=== PATIENT | male | born 1985 | race Caucasian/White ===

== ENCOUNTER 2016-04-22 18:09 | Emergency (ER) | payer OTHER ==
[~2016-04-22] VITALS: Ht 180.3 cm; Wt 76.5 kg
[~2016-04-22 18:09] MED LIST: ATARAX,VISTARIL25 MG PO; ATIVAN0.5 MG PO; CHLORDIAZEPOXID25 MG PO; FOLIC ACID1 MG PO; LIBRIUM25 MG PO; NOHOMEMEDS; OXYCODONE HCL10 MG PO; OXYCODONE HCL5 MG PO; PERCOCET 5/31 TABLET PO; THIAMINE HCL100 MG PO; ZOFRAN ODT4 MG PO
[2016-04-22] MEDS ORDERED: PERCOCET 5/31 TABLET PO (20:50)
[2016-04-22 21:25] VITALS: BP 156/89
== END 2016-04-22 21:26 | disposition home or self-care (01) ==
LOC: EME 18:09
PROC: 2W3TX1Z Immobilization of Left Foot using Splint (ICD-10-PCS; principal; 2016-04-22)
DX: S92.325A Nondisplaced fracture of second metatarsal bone, left foot, initial encounter for closed fracture (principal); W20.8XXA Other cause of strike by thrown, projected or falling object, initial encounter; Y99.0 Civilian activity done for income or pay; Z88.0 Allergy status to penicillin; F17.200 Nicotine dependence, unspecified, uncomplicated
CPT/HCPCS: 73630; 93971; 99281; 99284; J3010

== ENCOUNTER 2016-04-30 21:09 | Emergency (ER) | payer OTHER ==
[~2016-04-30] VITALS: Ht 180.3 cm; Wt 76.3 kg
[2016-05-01] MEDS ORDERED: PREDNISONE10 M1 PO (00:44)
[2016-05-01] MEDS ORDERED: ATARAX,VISTARIL25 MG PO (00:52)
[2016-05-01 00:53] VITALS: BP 176/118
[2016-05-01 01:07] LABS: HEMATOCRIT 49.1 % (38.0-50.0); MCH 31.3 PG (29.0-34.0); MCHC 34.2 G/DL (30.0-36.0); MCV 91.6 FL (86-99); MEAN PLAT.VOLUME 10.3 uM^3 (9.0-12.4); PLATELET COUNT 169 K/uL (156-360); RBC DIS.WIDTH-CV 12.2 % (11.8-14.6); RBC DIS.WIDTH-SD 41.1 % (39-53); RED BLOOD COUNT 5.36 M/uL (4.00-5.50); WHITE BLOOD COUNT 9.5 K/uL (4.1-10.2)
[2016-05-01 01:33] LABS: ERTH.SED.RATE 6 MM/HR (0-15)
== END 2016-05-01 01:00 | disposition home or self-care (01) ==
LOC: EME 21:09
PROVIDERS: Physician Assistant
DX: M79.672 Pain in left foot (principal); R20.0 Anesthesia of skin; Z87.891 Personal history of nicotine dependence; F41.9 Anxiety disorder, unspecified
CPT/HCPCS: 85027; 85651; 86140; 93926; 99281; 99284

== ENCOUNTER 2016-05-17 18:18 | Emergency (ER) | payer SELFPAY ==
[~2016-05-17] VITALS: Ht 180.3 cm; Wt 79.4 kg
[~2016-05-17 18:18] MED LIST changes: +PREDNISONE10 M1 PO
[2016-05-17 19:41] LABS: EOSINOPHIL (%) 0.1 % (0-5); HEMATOCRIT 44.6 % (38.0-50.0); IMMATURE GRANULOCYTE COUNT 0.1 K/uL; INSTRUMENT ABS NEUTROPHIL CT 7.5 K/uL; LYMPHOCYTE COUNT 1.4 K/uL (1.0-2.8); MCH 31.4 PG (29.0-34.0); MCHC 34.8 G/DL (30.0-36.0); MCV 90.5 FL (86-99); MEAN PLAT.VOLUME 9.9 uM^3 (9.0-12.4); MONOCYTE (%) 5.8 % (3-12); MONOCYTE COUNT 0.6 K/uL (0-0.8); NEUTROPHIL (%) 78.6 % (45-76); NEUTROPHIL COUNT 7.5 K/uL (1.8-6.4); PLATELET COUNT 121 K/uL (156-360); RBC DIS.WIDTH-CV 12.1 % (11.8-14.6); RBC DIS.WIDTH-SD 39.8 % (39-53); RED BLOOD COUNT 4.93 M/uL (4.00-5.50); WHITE BLOOD COUNT 9.6 K/uL (4.1-10.2)
[2016-05-17 19:49] LABS: CHLORIDE 104 mEq/L (99-109); POTASSIUM 3.7 mEq/L (3.7-5.4); SODIUM 142 mEq/L (136-147)
[2016-05-17 19:51] LABS: GLUCOSE 102 mg/dL (70-99)
[2016-05-17 19:52] LABS: ANION GAP 11 MEQ/L (2-14)
[2016-05-17 19:54] LABS: SERUM ETHYL ALCOHOL < 10 mg/dL
[2016-05-17 19:55] LABS: GFR ESTIMATE (CALCULATED) > 59 mL/min/
[2016-05-17 19:56] LABS: UREA NITROGEN (BUN) 13 mg/dL (9-23)
[2016-05-17 20:59] LABS: AMPHETAMINE NEGATIVE (500 ng/mL); BARBITURATES NEGATIVE (200 ng/mL); BENZODIAZEPINES PRESUMPTIVE POSITIVE (150 ng/mL); COCAINE PRESUMPTIVE POSITIVE (150 ng/mL); INTERNAL CONTROLS VALID? YES; METHADONE NEGATIVE (200 ng/mL); METHAMPHETAMINE NEGATIVE (500 ng/mL); OPIATES (MORPHINE) NEGATIVE (100 ng/mL); OXYCODONE PRESUMPTIVE POSITIVE (100 ng/mL); PHENCYCLIDINE NEGATIVE (25 ng/mL); PROPOXYPHENE NEGATIVE (300 ng/mL); THC CANNABINOIDS PRESUMPTIVE POSITIVE (50 ng/mL); TRICYCLIC ANTIDEPRESSANTS NEGATIVE (300 ng/mL)
[2016-05-17 21:00] LABS: ADD MEDTOX COMMENT Y
[2016-05-17 21:25] LABS: BENZODIAZEPINES QUANT VALUE 0 NG/ML
[2016-05-17 21:27] LABS: BENZODIAZEPINES, URINE SCREEN Negative (200 ng/mL)
[2016-05-17] MEDS ORDERED: LIBRIUM25 MG PO (23:17)
[2016-05-17 23:44] VITALS: BP 134/63
== END 2016-05-17 23:51 | disposition home or self-care (01) ==
LOC: EME 18:18
PROVIDERS: Emergency Medicine
DX: F10.14 Alcohol abuse with alcohol-induced mood disorder (principal); F41.3 Other mixed anxiety disorders; F12.90 Cannabis use, unspecified, uncomplicated; F14.90 Cocaine use, unspecified, uncomplicated; Z88.0 Allergy status to penicillin
CPT/HCPCS: 80048; 84999; 85025; 90839; 99281; 99285; G0480; J2060; J2405; J7030

== ENCOUNTER 2016-06-22 20:06 | Emergency (ER) | payer SELFPAY ==
[~2016-06-22] VITALS: Ht 180.3 cm; Wt 75.0 kg
[2016-06-22 21:09] LABS: EOSINOPHIL (%) 0.5 % (0-5); HEMATOCRIT 43.7 % (38.0-50.0); IMMATURE GRANULOCYTE (%) 0.5 % (0.0-0.7); INSTRUMENT ABS NEUTROPHIL CT 4.2 K/uL; LYMPHOCYTE COUNT 2.9 K/uL (1.0-2.8); MCHC 35.2 G/DL (30.0-36.0); MCV 90.7 FL (86-99); MEAN PLAT.VOLUME 9.9 uM^3 (9.0-12.4); MONOCYTE (%) 3.9 % (3-12); MONOCYTE COUNT 0.3 K/uL (0-0.8); NEUTROPHIL COUNT 4.2 K/uL (1.8-6.4); PLATELET COUNT 140 K/uL (156-360); RBC DIS.WIDTH-CV 12.7 % (11.8-14.6); RBC DIS.WIDTH-SD 41.8 % (39-53); RED BLOOD COUNT 4.82 M/uL (4.00-5.50); WHITE BLOOD COUNT 7.4 K/uL (4.1-10.2)
[2016-06-22 21:18] LABS: CHLORIDE 107 mEq/L (99-109); POTASSIUM 4.1 mEq/L (3.7-5.4); SODIUM 146 mEq/L (136-147)
[2016-06-22 21:19] LABS: PROTHROMBIN TIME 10.1 (9.2-11.2)
[2016-06-22 21:20] LABS: GLUCOSE 102 mg/dL (70-99)
[2016-06-22 21:21] LABS: ANION GAP 12 MEQ/L (2-14)
[2016-06-22 21:22] LABS: TOTAL BILIRUBIN 0.4 mg/dL (0.0-1.0)
[2016-06-22 21:23] LABS: SERUM ETHYL ALCOHOL 303 mg/dL
[2016-06-22 21:24] LABS: ALKALINE PHOSPHATASE 64 IU/L (3-129); GFR ESTIMATE (CALCULATED) > 59 mL/min/
[2016-06-22 21:25] LABS: UREA NITROGEN (BUN) 13 mg/dL (9-23)
[2016-06-22 21:27] LABS: LIPASE 102 U/L (1.0-51.0)
[2016-06-22 22:34] LABS: ADD MIUA? NO; BILIRUBIN NEGATIVE; BLOOD NEGATIVE; COLOR YELLOW ((YELLOW)); GLUCOSE (STRIP) NEGATIVE; KETONES NEGATIVE; LEUKOCYTES NEGATIVE; NITRITE NEGATIVE; PROTEIN (STRIP) NEGATIVE; SPECIFIC GRAVITY 1.018 (1.000-1.030); UCUL ADDED? NO
[2016-06-22 22:42] LABS: COCAINE NEGATIVE (150 ng/mL); METHAMPHETAMINE NEGATIVE (500 ng/mL); OPIATES (MORPHINE) NEGATIVE (100 ng/mL); PHENCYCLIDINE NEGATIVE (25 ng/mL); THC CANNABINOIDS NEGATIVE (50 ng/mL)
[2016-06-22 22:43] LABS: ADD MEDTOX COMMENT Y; AMPHETAMINE NEGATIVE (500 ng/mL); BARBITURATES NEGATIVE (200 ng/mL); BENZODIAZEPINES PRESUMPTIVE POSITIVE (150 ng/mL); INTERNAL CONTROLS VALID? YES; METHADONE NEGATIVE (200 ng/mL); OXYCODONE NEGATIVE (100 ng/mL); PROPOXYPHENE NEGATIVE (300 ng/mL); TRICYCLIC ANTIDEPRESSANTS NEGATIVE (300 ng/mL)
[2016-06-22] MEDS ORDERED: LIBRIUM25 MG PO (22:53)
[2016-06-22 23:08] VITALS: BP 138/91
[2016-06-22 23:14] LABS: BENZODIAZEPINES, URINE SCREEN POSITIVE (200 ng/mL)
== END 2016-06-22 23:13 | disposition home or self-care (01) ==
LOC: EME 20:06
PROVIDERS: Emergency Medicine
DX: F10.129 Alcohol abuse with intoxication, unspecified (principal); Y90.8 Blood alcohol level of 240 mg/100 ml or more; K85.90 Acute pancreatitis without necrosis or infection, unspecified; K74.60 Unspecified cirrhosis of liver; Z72.0 Tobacco use
CPT/HCPCS: 74177; 76705; 80053; 81003; 82140; 83605; 83690; 84999; 85025; 85610; 85730; 99281; 99285; G0480; J2270; J2405; J7030

== ENCOUNTER 2016-10-30 19:05 | Emergency (ER) | payer SELFPAY ==
[~2016-10-30] VITALS: Ht 177.8 cm; Wt 84.6 kg
[2016-10-30 20:01] LABS: EOSINOPHIL (%) 0.3 % (0-5); HEMATOCRIT 46.8 % (38.0-50.0); IMMATURE GRANULOCYTE (%) 0.3 % (0.0-0.7); INSTRUMENT ABS NEUTROPHIL CT 3.4 K/uL; MCHC 34.8 G/DL (30.0-36.0); MCV 91.9 FL (86-99); MONOCYTE (%) 8.3 % (3-12); MONOCYTE COUNT 0.5 K/uL (0-0.8); NEUTROPHIL (%) 57.8 % (45-76); NEUTROPHIL COUNT 3.4 K/uL (1.8-6.4); PLATELET COUNT 120 K/uL (156-360); RBC DIS.WIDTH-CV 12.5 % (11.8-14.6); RBC DIS.WIDTH-SD 42.7 % (39-53); RED BLOOD COUNT 5.09 M/uL (4.00-5.50); WHITE BLOOD COUNT 5.9 K/uL (4.1-10.2)
[2016-10-30 20:10] LABS: CHLORIDE 111 mEq/L (99-109); POTASSIUM 3.8 mEq/L (3.7-5.4); SODIUM 146 mEq/L (136-147)
[2016-10-30 20:12] LABS: GLUCOSE 90 mg/dL (70-99)
[2016-10-30 20:13] LABS: ANION GAP 11 MEQ/L (2-14)
[2016-10-30 20:14] LABS: TOTAL BILIRUBIN 0.5 mg/dL (0.0-1.0)
[2016-10-30 20:15] LABS: SERUM ETHYL ALCOHOL 247 mg/dL
[2016-10-30 20:16] LABS: ALKALINE PHOSPHATASE 61 IU/L (3-129); GFR ESTIMATE (CALCULATED) > 59 mL/min/
[2016-10-30 20:17] LABS: DIRECT BILIRUBIN 0.2 mg/dL (0.0-0.3); UREA NITROGEN (BUN) 8 mg/dL (9-23)
[2016-10-30 21:24] LABS: ADD MIUA? NO; BILIRUBIN NEGATIVE; BLOOD NEGATIVE; COLOR YELLOW ((YELLOW)); GLUCOSE (STRIP) NEGATIVE; KETONES NEGATIVE; LEUKOCYTES NEGATIVE; NITRITE NEGATIVE; PROTEIN (STRIP) NEGATIVE; SPECIFIC GRAVITY 1.013 (1.000-1.030)
[2016-10-30 21:34] LABS: ADD MEDTOX COMMENT Y; AMPHETAMINE NEGATIVE (500 ng/mL); BARBITURATES NEGATIVE (200 ng/mL); BENZODIAZEPINES PRESUMPTIVE POSITIVE (150 ng/mL); COCAINE PRESUMPTIVE POSITIVE (150 ng/mL); INTERNAL CONTROLS VALID? YES; METHADONE NEGATIVE (200 ng/mL); METHAMPHETAMINE NEGATIVE (500 ng/mL); OPIATES (MORPHINE) NEGATIVE (100 ng/mL); OXYCODONE NEGATIVE (100 ng/mL); PHENCYCLIDINE NEGATIVE (25 ng/mL); PROPOXYPHENE NEGATIVE (300 ng/mL); THC CANNABINOIDS PRESUMPTIVE POSITIVE (50 ng/mL); TRICYCLIC ANTIDEPRESSANTS NEGATIVE (300 ng/mL)
[2016-10-30 22:08] LABS: BENZODIAZEPINES, URINE SCREEN POSITIVE (200 ng/mL)
[2016-10-31] MEDS ORDERED: LIBRIUM25 MG PO (02:00)
[2016-10-31 02:36] VITALS: BP 119/78
== END 2016-10-31 02:33 | disposition home or self-care (01) ==
LOC: EME 19:05
PROVIDERS: Emergency Medicine
DX: F10.229 Alcohol dependence with intoxication, unspecified (principal); F12.10 Cannabis abuse, uncomplicated; F14.10 Cocaine abuse, uncomplicated; Y90.8 Blood alcohol level of 240 mg/100 ml or more; F41.3 Other mixed anxiety disorders; F32.9 Major depressive disorder, single episode, unspecified; R11.2 Nausea with vomiting, unspecified; R19.7 Diarrhea, unspecified; R10.11 Right upper quadrant pain; R33.9 Retention of urine, unspecified; F17.200 Nicotine dependence, unspecified, uncomplicated
CPT/HCPCS: 80048; 80076; 81003; 84999; 85025; 90839; 99281; 99285; G0480; J3411; J3475

== ENCOUNTER 2017-01-12 20:12 | Emergency (ER) | payer SELFPAY ==
[2017-01-12] MEDS ORDERED: PERCOCET 5/31 TABLET PO (20:27)
[2017-01-12] MEDS ORDERED: MOTRIN800 MG PO (20:27)
[2017-01-12 20:28] VITALS: BP 149/98
== END 2017-01-12 20:31 ==
LOC: EME 20:12
DX: Z02.89 Encounter for other administrative examinations (principal); F10.129 Alcohol abuse with intoxication, unspecified; M79.602 Pain in left arm; Z88.0 Allergy status to penicillin
CPT/HCPCS: 99281; 99283

== ENCOUNTER 2017-02-27 09:21 | Emergency (ER) | payer SELFPAY ==
[~2017-02-27] VITALS: Ht 177.8 cm; Wt 85.0 kg
[~2017-02-27 09:21] MED LIST changes: +MOTRIN800 MG PO
[2017-02-27 10:02] LABS: HEMATOCRIT 48.4 % (38.0-50.0); HEMOGLOBIN 17.3 G/DL (12.5-16.6); MCH 33.1 PG (29.0-34.0); MCHC 35.7 G/DL (30.0-36.0); MCV 92.5 FL (86-99); PLATELET COUNT 178 K/uL (156-360); RBC DIS.WIDTH-CV 13.1 % (11.8-14.6); RBC DIS.WIDTH-SD 44.4 % (39-53); RED BLOOD COUNT 5.23 M/uL (4.00-5.50); WHITE BLOOD COUNT 5.5 K/uL (4.1-10.2)
[2017-02-27 10:10] LABS: ALBUMIN 4.7 g/dL (3.2-4.8); CHLORIDE 103 mEq/L (99-109); POTASSIUM 4.3 mEq/L (3.7-5.4); SODIUM 140 mEq/L (136-147)
[2017-02-27 10:13] LABS: GLUCOSE 96 mg/dL (70-99)
[2017-02-27 10:14] LABS: TOTAL BILIRUBIN 1.3 mg/dL (0.0-1.0)
[2017-02-27 10:16] LABS: ALKALINE PHOSPHATASE 66 IU/L (3-129); CREATININE 0.8 mg/dL (0.6-1.3); GFR ESTIMATE (CALCULATED) > 59 mL/min/ (58.99-99999)
[2017-02-27 10:17] LABS: UREA NITROGEN (BUN) 9 mg/dL (9-23)
[2017-02-27 10:18] LABS: AST (GOT) 37 IU/L (2-34); DIRECT BILIRUBIN 0.5 mg/dL (0.0-0.3)
[2017-02-27 10:19] LABS: ALT (GPT) 26 IU/L (3-49)
[2017-02-27 10:20] LABS: LIPASE 31 U/L (1.0-51.0)
[2017-02-27 11:22] LABS: AMPHETAMINE NEGATIVE (500 ng/mL); COCAINE NEGATIVE (150 ng/mL); OPIATES (MORPHINE) NEGATIVE (100 ng/mL); PHENCYCLIDINE NEGATIVE (25 ng/mL); THC CANNABINOIDS PRESUMPTIVE POSITIVE (50 ng/mL)
[2017-02-27 11:23] LABS: BARBITURATES NEGATIVE (200 ng/mL); BENZODIAZEPINES PRESUMPTIVE POSITIVE (150 ng/mL); BUPRENORPHINE NEGATIVE (10 ng/mL); METHADONE NEGATIVE (200 ng/mL); METHAMPHETAMINE NEGATIVE (500 ng/mL); OXYCODONE NEGATIVE (100 ng/mL); PROPOXYPHENE NEGATIVE (300 ng/mL); TRICYCLIC ANTIDEPRESSANTS NEGATIVE (300 ng/mL)
[2017-02-27 12:11] LABS: BENZODIAZEPINES, URINE SCREEN POSITIVE (200 ng/mL)
[2017-02-27 12:19] LABS: SERUM ETHYL ALCOHOL 141 mg/dL
[2017-02-27] MEDS ORDERED: LIBRIUM25 MG PO (12:48)
[2017-02-27] MEDS ORDERED: VITAMIN B-1100 MG PO (12:48)
[2017-02-27 13:16] VITALS: BP 159/86
== END 2017-02-27 13:17 | disposition home or self-care (01) ==
LOC: EME 09:21
PROVIDERS: Emergency Medicine
DX: R10.31 Right lower quadrant pain (principal); F10.239 Alcohol dependence with withdrawal, unspecified; Y90.6 Blood alcohol level of 120-199 mg/100 ml; K76.0 Fatty (change of) liver, not elsewhere classified; K74.60 Unspecified cirrhosis of liver; K21.9 Gastro-esophageal reflux disease without esophagitis; F41.9 Anxiety disorder, unspecified; Z88.0 Allergy status to penicillin
CPT/HCPCS: 74177; 80053; 82248; 83690; 83735; 84999; 85027; 85610; 85730; 99281; 99285; G0480; J1885; J2405; J7030

== ENCOUNTER 2017-03-11 13:37 | Emergency (ER) | payer SELFPAY ==
[~2017-03-11] VITALS: Ht 177.8 cm; Wt 91.4 kg
[~2017-03-11 13:37] MED LIST changes: +VITAMIN B-1100 MG PO
[2017-03-11 14:17] LABS: APPEARANCE CLEAR ((CLEAR)); BILIRUBIN NEGATIVE; BLOOD NEGATIVE; COLOR STRAW ((YELLOW)); GLUCOSE (STRIP) NEGATIVE; KETONES NEGATIVE; LEUKOCYTES NEGATIVE; NITRITE NEGATIVE; PROTEIN (STRIP) NEGATIVE; SPECIFIC GRAVITY 1.004 (1.000-1.030); UROBILINOGEN 0.2 MG/DL (0.2-1.0)
[2017-03-11 14:29] LABS: BASOPHIL (%) 0.3 % (0-1); EOSINOPHIL (%) 0.8 % (0-5); EOSINOPHIL COUNT 0.1 K/uL (0-0.3); HEMATOCRIT 46.3 % (38.0-50.0); HEMOGLOBIN 16.1 G/DL (12.5-16.6); IMMATURE GRANULOCYTE (%) 1.3 % (0.0-0.7); LYMPHOCYTE (%) 33.7 % (15-42); LYMPHOCYTE COUNT 2.6 K/uL (1.0-2.8); MCH 33.6 PG (29.0-34.0); MCHC 34.8 G/DL (30.0-36.0); MCV 96.7 FL (86-99); MONOCYTE COUNT 0.5 K/uL (0-0.8); NEUTROPHIL (%) 56.9 % (45-76); NEUTROPHIL COUNT 4.4 K/uL (1.8-6.4); PLATELET COUNT 149 K/uL (156-360); RBC DIS.WIDTH-CV 13.5 % (11.8-14.6); RBC DIS.WIDTH-SD 48.4 % (39-53); RED BLOOD COUNT 4.79 M/uL (4.00-5.50); WHITE BLOOD COUNT 7.7 K/uL (4.1-10.2)
[2017-03-11 14:33] LABS: AMPHETAMINE NEGATIVE (500 ng/mL); BARBITURATES NEGATIVE (200 ng/mL); BENZODIAZEPINES PRESUMPTIVE POSITIVE (150 ng/mL); BUPRENORPHINE NEGATIVE (10 ng/mL); COCAINE NEGATIVE (150 ng/mL); METHADONE NEGATIVE (200 ng/mL); METHAMPHETAMINE NEGATIVE (500 ng/mL); OPIATES (MORPHINE) NEGATIVE (100 ng/mL); OXYCODONE NEGATIVE (100 ng/mL); PHENCYCLIDINE NEGATIVE (25 ng/mL); PROPOXYPHENE NEGATIVE (300 ng/mL); THC CANNABINOIDS NEGATIVE (50 ng/mL); TRICYCLIC ANTIDEPRESSANTS NEGATIVE (300 ng/mL)
[2017-03-11 14:47] LABS: CHLORIDE 111 MEQ/L (99-109); CREATININE 0.7 MG/DL (0.6-1.3); GFR ESTIMATE (CALCULATED) > 59 mL/min/ (58.99-99999); GLUCOSE 101 mg/dL (70-99); POTASSIUM 4.3 MEQ/L (3.7-5.4); SERUM ETHYL ALCOHOL 411 mg/dL; SODIUM 146 MEQ/L (136-147); UREA NITROGEN (BUN) 14 mg/dL (9-23)
[2017-03-11 15:42] LABS: BENZODIAZEPINES, URINE SCREEN POSITIVE (200 ng/mL)
[2017-03-11 18:29] VITALS: BP 99/74
== END 2017-03-11 18:30 | disposition home or self-care (01) ==
LOC: EME 13:37
PROVIDERS: Emergency Medicine
DX: F10.129 Alcohol abuse with intoxication, unspecified (principal); Y90.8 Blood alcohol level of 240 mg/100 ml or more; K74.60 Unspecified cirrhosis of liver; F17.200 Nicotine dependence, unspecified, uncomplicated
CPT/HCPCS: 80048; 81003; 84999; 85025; G0480